=== PATIENT | male | born 1960 | race Two or more races ===

== ENCOUNTER 2022-10-02 08:50 | Outpatient (CLI) | payer MEDICARE ==
[2022-10-02 12:51] LABS: BASOPHILS # (AUTO) 0.1 K/uL (0.0-0.2); BASOPHILS % (AUTO) 0.7 % (0.0-2.0); EOSINOPHILS % (AUTO) 2.3 % (0.0-6.0); HEMATOCRIT 41 % (39-51); HEMOGLOBIN 13.5 g/dL (13.5-17.5); LYMPHOCYTES # (AUTO) 2.5 K/uL (0.8-4.8); LYMPHOCYTES % (AUTO) 30.6 % (20.0-44.0); MEAN CORPUSCULAR HGB CONC 33 g/dl (31.0-36.0); MEAN CORPUSCULAR VOLUME 84 fL (80-96); MONOCYTES # (AUTO) 0.8 K/uL (0.1-1.30); MONOCYTES % (AUTO) 10.4 % (2.0-12.0); NEUTROPHILS # (AUTO) 4.5 K/uL (1.8-8.9); PLATELET COUNT (AUTO) 273 K/uL (150-450); WHITE BLOOD COUNT (AUTO) 8.1 K/uL (4.3-11.0)
[2022-10-02 12:52] LABS: BILIRUBIN,URINE NEGATIVE (NEGATIVE); COLOR,URINE YELLOW (YELLOW); LEUKOCYTE ESTERASE ,URINE NEGATIVE (NEGATIVE); NITRITE, URINE NEGATIVE (NEGATIVE); PROTEIN,URINE NEGATIVE (NEGATIVE); UGLUCOSE NEGATIVE (NEGATIVE); UROBILINOGEN,URINE 0.2 EU/dL (0.2)
[2022-10-02 13:05] LABS: BACTERIA,URINE None seen /HPF (None Seen); MUCUS,URINE Few /LPF (None Seen); RBC,URINE 0-2 /HPF (0-2); SQUAMOUS EPITHELIAL CELL,UR Rare /HPF (None Seen); WBC,URINE 0-2 /HPF (0-3)
[2022-10-02 13:11] LABS: CREATININE 0.9 mg/dL (0.6-1.3)
== END 2022-10-02 23:59 | disposition home or self-care (01) ==
LOC: LAB 08:50
PROVIDERS: ATTEND Dentist Oral and Maxillofacial Surgery
DX: Z01.818 Encounter for other preprocedural examination (principal); Z20.822 Contact with and (suspected) exposure to COVID-19; R06.02 Shortness of breath
CPT/HCPCS: 71045; 85025; 80048; 81001; 36415; 85730; U0003; C9803

== ENCOUNTER 2022-10-06 06:19 | Day surgery (SDC) | payer MEDICARE, OTHER ==
[~2022-10-06] VITALS: Ht 167.6 cm; Wt 89.4 kg
--- NOTE | 2022-10-06 07:30 | NUR ---
RN NOTES RECEIVED PATIENT AT 0630 . PATIENT IS A/O TIMES 4. NO PAIN NOTED. NO SOB NOTED. NO DISTRESS NOTED. STARTED IN AT RIGHT AC G # 20. ALL NEEDS ATTENDED. NPO. ALL CONSENTS SIGNED. BED IN THE LOWEST POSITION. CALL LIGHT AND TABLE IN EASY REACH. WILL CONTINUE TO MONITOR CLOSELY.
[2022-10-06 08:00] VITALS: BP 155/95
[2022-10-06] MEDS ORDERED: FENTANYL PF 250MCG/5ML AMPUL ONE (10:51)
[2022-10-06] MEDS ORDERED: ROCURONIUM BROMIDE 50 MG/5 ML ONE (10:52)
[2022-10-06] MEDS ORDERED: VANCOMYCIN 1 GM VIAL ONE (10:55)
[2022-10-06] MEDS ORDERED: DEXAMETHASONE SOD PHOSPHATE 10 MG/ML VIAL ONE (10:56)
[2022-10-06] MEDS ORDERED: LIDOCAINE 2%-EPI 1:200,000 20 ML VIAL IJ ONE (10:56)
[2022-10-06] MEDS ORDERED: SEVOFLURANE 250 ML BOTTLE IH ONE (13:41)
[2022-10-06] MEDS ORDERED: ANESTHESIA TRAY IN PYXIS 1 EA TRAY MC ONE (14:12)
[2022-10-06] MEDS ORDERED: HYDROMORPHONE 1 MG/1 ML DISP.SYRIN IV ONE (16:00)
[2022-10-06] MEDS ORDERED: ONDANSETRON HCL/PF 4 MG/2 ML VIAL IVP ONE (16:00)
--- NOTE | 2022-10-06 16:26 | NUR ---
S/P ORIF MAXILLARY FRACTURE. VS STABLE, AFEBRILE. TOLERATED SOFT DIET, NO N/V. AMBULATORY. SKIN IS INTACT. PER DR TIRADO - SOFT DIET UNTIL PT IS SEEN BY HIM. OKAY TO USE DENTURES AND MAKE AN APPT WITH HIM IN 10 DAYS. DISCHARGE INSTRUCTIONS AND HEALTH TEACHINGS GIVEN, PT VERBALIZED UNDERSTANDING.
[2022-10-06] MEDS ORDERED: ONDANSETRON HCL/PF 4 MG/2 ML VIAL IVP PRN (17:00)
[2022-10-06] MEDS ORDERED: HYDROMORPHONE 1 MG/1 ML DISP.SYRIN IV PRN (17:00)
== END 2022-10-06 19:00 | disposition home or self-care (01) ==
LOC: DS 06:19 → UNDOADMIN 07:31 → MED 07:31 → UNDODISIN 16:50 → DS 19:00
PROVIDERS: ATTEND Dentist Oral and Maxillofacial Surgery
DX: S02.401A Maxillary fracture, unspecified side, initial encounter for closed fracture (principal); D49.2 Neoplasm of unspecified behavior of bone, soft tissue, and skin; Z20.822 Contact with and (suspected) exposure to COVID-19; C41.1 Malignant neoplasm of mandible; J32.0 Chronic maxillary sinusitis; M86.69 Other chronic osteomyelitis, multiple sites; I10 Essential (primary) hypertension; J45.909 Unspecified asthma, uncomplicated; Z98.890 Other specified postprocedural states; Z79.899 Other long term (current) drug therapy; X58.XXXA Exposure to other specified factors, initial encounter; Y93.89 Activity, other specified; Y92.89 Other specified places as the place of occurrence of the external cause; Y99.8 Other external cause status
CPT/HCPCS: 21049; 88342; 87081; 88311; 88312; 88305; 88341; 30580; 21348; J0690; J1100 ×2; J2704; J3370; J2405; J7030; J7050; C1713 ×5; J3490; J3010; C1781; G0378

== ENCOUNTER 2023-05-11 09:01 | Inpatient (IN) | payer MEDICARE, OTHER ==
[~2023-05-11] VITALS: Ht 165.1 cm; Wt 85.3 kg
[2023-05-11] MEDS ORDERED: BUDE10.2 IH (09:33)
[2023-05-11] MEDS ORDERED: PRAV40TA3 PO (09:33)
[2023-05-11] MEDS ORDERED: ALBU18HF2 IH (09:33)
[2023-05-11] MEDS ORDERED: ASPI-1420 PO (09:33)
[2023-05-11] MEDS ORDERED: IBUP-1955 PO (09:33)
[2023-05-11] MEDS ORDERED: ERGO500093 PO (09:33)
[2023-05-11] MEDS ORDERED: CARV3.122 PO (09:33)
[2023-05-11] MEDS ORDERED: OLME5TAB6 PO (09:34)
[2023-05-11 10:00] VITALS: BP_SYST 153; BP_SYST 161; BP_DIAS 88; BP_DIAS 98; TEMP 97.5; TEMP 98.1; O2SAT 96; O2SAT 98
[2023-05-11] MEDS ORDERED: LIDOCAINE 2%-EPI 1:100,000 30 ML VIAL ONE (11:15)
[2023-05-11] MEDS ORDERED: dexaMETHasone SOD PHOSPHATE 10 MG/ML VIAL ONE (11:15)
[2023-05-11] MEDS ORDERED: VANCOMYCIN 1 GM VIAL ONE (11:16)
[2023-05-11] MEDS ORDERED: SUCCINYLCHOLINE CHLORIDE 20 MG/ML VIAL ONE (11:39)
[2023-05-11] MEDS ORDERED: ACETAMINOPHEN 325 MG TABLET PO PRN ×2 (14:00→16:00)
[2023-05-11] MEDS ORDERED: ONDANSETRON HCL/PF 4 MG/2 ML VIAL IVP PRN ×2 (14:00→16:00)
[2023-05-11] MEDS ORDERED: HYDROMORPHONE 1 MG/1 ML DISP.SYRIN IV PRN (14:00)
[2023-05-11] MEDS ORDERED: IV NS 0.9% 1,000 ML IV PRN (14:00)
[2023-05-11] MEDS ORDERED: ANESTHESIA TRAY IN PYXIS 1 EA TRAY MC ONE (14:56)
[2023-05-11] MEDS ORDERED: ALBUTEROL FS 2.5 MG/3 ML VIAL.NEB NEB PRN (16:00)
[2023-05-11 18:25] VITALS: BP 153/88; TEMP 98.1; O2SAT 96
[2023-05-11 20:00] VITALS: BP 144/89; TEMP 97.5; O2SAT 96
[2023-05-11] MEDS: CARVEDILOL 3.125 MG TABLET PO SCH (21:57)
[2023-05-11] MEDS: VANCOMYCIN 1 GM in IV D5W 250ml IV SCH (22:50)
[2023-05-12] VITALS: BP 126/75; TEMP 97.5; O2SAT 95
[2023-05-12 04:00] VITALS: BP 133/80; TEMP 97.9; O2SAT 98
[2023-05-12 06:04] LABS: HEMATOCRIT 41 % (39-51); HEMOGLOBIN 13.6 g/dL (13.5-17.5); LYMPHOCYTES # (AUTO) 0.9 K/uL (0.8-4.8); LYMPHOCYTES % (AUTO) 8.1 % (20.0-44.0); MEAN CORPUSCULAR HEMOGLOBIN 28 PG (26.0-33.0); MEAN CORPUSCULAR HGB CONC 33 g/dl (31.0-36.0); MEAN CORPUSCULAR VOLUME 84 fL (80-96); MONOCYTES # (AUTO) 0.3 K/uL (0.1-1.30); MONOCYTES % (AUTO) 3.1 % (2.0-12.0); NEUTROPHILS # (AUTO) 9.8 K/uL (1.8-8.9); NEUTROPHILS % (AUTO) 88.8 % (43.0-81.0); PLATELET COUNT (AUTO) 292 K/uL (150-450); RED BLOOD CELL COUNT(AUTO) 4.88 MIL/uL (4.5-6.0); RED CELL DISTRIBUTION WIDTH 13.2 % (11.5-15.0); WHITE BLOOD COUNT (AUTO) 11.1 K/uL (4.3-11.0)
[2023-05-12 06:25] LABS: ALBUMIN 3.1 g/dL (3.4-5.0); BILIRUBIN,TOTAL 0.5 mg/dL (0.2-1.0); CREATININE 0.9 mg/dL (0.6-1.3); MAGNESIUM 2.1 mg/dL (1.8-2.4); PHOSPHORUS 4.1 mg/dL (2.5-4.9); POTASSIUM 4.1 mmol/L (3.5-5.1); TOTAL PROTEIN, SERUM 7.1 g/dL (6.4-8.2)
[2023-05-12 08:00] VITALS: BP 127/80; TEMP 98.3; O2SAT 97
[2023-05-12 08:33] VITALS: BP 127/80
[2023-05-12] MEDS: CARVEDILOL 3.125 MG TABLET PO SCH (08:33)
[2023-05-12] MEDS ORDERED: ATORVASTATIN 10 MG TABLET PO SCH (09:00)
[2023-05-12] MEDS ORDERED: ERGOCALCIFEROL (VITAMIN D 2) 50,000 UNIT CAPSULE PO SCH (09:00)
[2023-05-12] MEDS ORDERED: LOSARTAN POTASSIUM 25 MG TABLET PO SCH (09:00)
[2023-05-12] MEDS ORDERED: ASPIRIN EC 81 MG TABLET.DR PO SCH (09:00)
[2023-05-12] MEDS: VANCOMYCIN 1 GM in IV D5W 250ml IV SCH (09:45)
== END 2023-05-12 11:45 | disposition home or self-care (01) | DRG 908 ==
LOC: DS 09:01 → MED 10:34 → TELE 15:51
PROVIDERS: ADMIT Internal Medicine; ATTEND Internal Medicine
PROC: 0NSR04Z Reposition Maxilla with Internal Fixation Device, Open Approach (ICD-10-PCS; principal; 2023-05-11)
PROC: 0NPW04Z Removal of Internal Fixation Device from Facial Bone, Open Approach (ICD-10-PCS; 2023-05-11)
PROC: 0NUR07Z Supplement Maxilla with Autologous Tissue Substitute, Open Approach (ICD-10-PCS; 2023-05-11)
PROC: 0NBR0ZX Excision of Maxilla, Open Approach, Diagnostic (ICD-10-PCS; 2023-05-11)
DX: T86.831 Bone graft failure (principal); M87.88 Other osteonecrosis, other site; T84.69XA Infection and inflammatory reaction due to internal fixation device of other site, initial encounter; S02.401K Maxillary fracture, unspecified side, subsequent encounter for fracture with nonunion; E78.5 Hyperlipidemia, unspecified; I10 Essential (primary) hypertension; Y83.2 Surgical operation with anastomosis, bypass or graft as the cause of abnormal reaction of the patient, or of later complication, without mention of misadventure at the time of the procedure; Y92.89 Other specified places as the place of occurrence of the external cause; D16.4 Benign neoplasm of bones of skull and face
CPT/HCPCS: 36415; 80053-TC; 83735-TC; 84100-TC; 85025-TC; 93307-TC; A4223; C1713; G0378; J0330; J0461; J1100; J2704; J3370; J3490; J7030; J7060

== ENCOUNTER 2023-11-08 06:28 | Inpatient (IN) | payer MEDICARE, OTHER ==
[~2023-11-08] VITALS: Ht 180.3 cm; Wt 85.7 kg
[~2023-11-08 06:28] MED LIST: ALBU18HF2 IH; ASPI-1420 PO; BUDE10.2 IH; CARV3.122 PO; ERGO500093 PO; IBUP-1955 PO; OLME5TAB6 PO; PRAV40TA3 PO
[2023-11-08] MEDS ORDERED: FENTANYL PF 100MCG/2ML AMPUL ONE (08:37)
[2023-11-08] MEDS ORDERED: MIDAZOLAM HCL 2 MG/2ML VIAL ONE (08:38)
[2023-11-08] MEDS ORDERED: VANCOMYCIN 1 GM VIAL ONE (08:40)
[2023-11-08] MEDS ORDERED: dexaMETHasone SOD PHOSPHATE 2 ML ONE (08:41)
[2023-11-08] MEDS ORDERED: OXYMETAZOLINE HCL NASAL SPRAY 30 ML BOTTLE NS ONE (08:41)
[2023-11-08] MEDS ORDERED: LIDOCAINE 2%-EPI 1:100,000 30 ML VIAL ONE (08:41)
[2023-11-08] MEDS ORDERED: SUCCINYLCHOLINE CHLORIDE 20 MG/ML VIAL ONE ×2 (08:42)
[2023-11-08] MEDS: IV NS 0.9% 1,000 ML IV PRN (11:55)
[2023-11-08] MEDS ORDERED: HYDROMORPHONE 1 MG/1 ML DISP.SYRIN IV PRN (12:00)
[2023-11-08] MEDS ORDERED: ACETAMINOPHEN 325 MG TABLET PO PRN ×2 (12:00→12:30)
[2023-11-08] MEDS ORDERED: ONDANSETRON HCL/PF 4 MG/2 ML VIAL IV PRN (12:00)
[2023-11-08] MEDS ORDERED: IV NS 0.9% 1,000 ML IV PRN ×2 (12:00→12:30)
[2023-11-08] MEDS ORDERED: ONDANSETRON HCL/PF 4 MG/2 ML VIAL IVP PRN (12:30)
[2023-11-08] MEDS ORDERED: HYDROCODONE/APAP 5/325MG TABLET PO PRN (12:30)
[2023-11-08 14:25] VITALS: BP 136/88; TEMP 97.7; O2SAT 94
[2023-11-08] MEDS: POLYVINYL ALCOHOL 15 ML BOTTLE RIGHTEYE PRN (15:07)
[2023-11-08 17:09] VITALS: BP 149/94; TEMP 98.4; O2SAT 97
[2023-11-08 20:00] VITALS: BP 126/82; TEMP 98.4; O2SAT 93
[2023-11-08] MEDS: TEMAZEPAM 7.5 MG CAPSULE PO PRN (22:16)
[2023-11-09 07:08] LABS: HEMATOCRIT 41 % (39-51); HEMOGLOBIN 13.5 g/dL (13.5-17.5); LYMPHOCYTES # (AUTO) 1.1 K/uL (0.8-4.8); LYMPHOCYTES % (AUTO) 9.8 % (20.0-44.0); MEAN CORPUSCULAR HEMOGLOBIN 28 PG (26.0-33.0); MEAN CORPUSCULAR HGB CONC 33 g/dl (31.0-36.0); MEAN CORPUSCULAR VOLUME 84 fL (80-96); MONOCYTES # (AUTO) 0.7 K/uL (0.1-1.30); MONOCYTES % (AUTO) 6.2 % (2.0-12.0); NEUTROPHILS # (AUTO) 9.7 K/uL (1.8-8.9); PLATELET COUNT (AUTO) 261 K/uL (150-450); RED BLOOD CELL COUNT(AUTO) 4.83 MIL/uL (4.5-6.0); RED CELL DISTRIBUTION WIDTH 13.3 % (11.5-15.0); WHITE BLOOD COUNT (AUTO) 11.6 K/uL (4.3-11.0)
[2023-11-09 07:27] LABS: CALCIUM, SERUM 8.2 mg/dL (8.5-10.1); CREATININE 0.8 mg/dL (0.6-1.3); MAGNESIUM 2.1 mg/dL (1.8-2.4); PHOSPHORUS 3.6 mg/dL (2.5-4.9); POTASSIUM 4.1 mmol/L (3.5-5.1)
[2023-11-09 08:00] VITALS: BP 154/84; TEMP 99; O2SAT 96
== END 2023-11-09 11:45 | disposition home or self-care (01) | DRG 908 ==
LOC: DS 06:28 → MED 11:47
PROVIDERS: ADMIT Nurse Practitioner Acute Care; ATTEND Nurse Practitioner Acute Care
PROC: 0NPW04Z Removal of Internal Fixation Device from Facial Bone, Open Approach (ICD-10-PCS; principal; 2023-11-08)
PROC: 0NBR0ZZ Excision of Maxilla, Open Approach (ICD-10-PCS; 2023-11-08)
DX: T86.831 Bone graft failure (principal); D68.59 Other primary thrombophilia; T84.69XA Infection and inflammatory reaction due to internal fixation device of other site, initial encounter; Y83.2 Surgical operation with anastomosis, bypass or graft as the cause of abnormal reaction of the patient, or of later complication, without mention of misadventure at the time of the procedure; Y83.8 Other surgical procedures as the cause of abnormal reaction of the patient, or of later complication, without mention of misadventure at the time of the procedure; Y92.009 Unspecified place in unspecified non-institutional (private) residence as the place of occurrence of the external cause; E66.9 Obesity, unspecified; E78.5 Hyperlipidemia, unspecified; I10 Essential (primary) hypertension; Z68.26 Body mass index [BMI] 26.0-26.9, adult; K13.79 Other lesions of oral mucosa
CPT/HCPCS: 36415; 80048-TC; 83735-TC; 84100-TC; 85025-TC; A4223; G0378; J0330; J0690; J1100; J1170; J1885; J2250; J2405; J2704; J2765; J3010; J3370; J3490; J7030